=== PATIENT | female | born 2000 | race American Indian/Alaskan Native ===

== ENCOUNTER → 2020-11-04 10:47 | Outpatient (CLI) | payer OTHER, SELFPAY ==
--- NOTE | 2020-11-04 | DI.US.S_ITS ---
PROCEDURE: US EXTREMITY NONVASC UPPER LT INDICATIONS: Localized swelling, mass and lump, left upper limb TECHNIQUE: Real-time scanning was performed of the area of clinical concern left mid upper arm where a palpable lump has been present for approximately 6 weeks., with image documentation. COMPARISON: None. FINDINGS: There is a 8 x 9 x 10 mm complex mass without elevated internal or peripheral vascularity with what appears to be a thin hypoechoic extension towards the skin surface. IMPRESSION: Possible sebaceous cyst as cause of the area of current clinical concern. No hyperemia is associated that would indicate superimposed infection. Dictated by: Ramon Lomax M.D. on 11/04/2020 at 11:36 Approved by: Ramon Lomax M.D. on 11/04/2020 at 11:38
== END ==
PROVIDERS: Family Provider Family Medicine; PCP Family Medicine; Referring Provider Family Medicine; Visit Provider Family Medicine
DX: R22.32 Localized swelling, mass and lump, left upper limb (principal); D49.2 Neoplasm of unspecified behavior of bone, soft tissue, and skin
CPT/HCPCS: 11401; 76882